=== PATIENT | male | born 1970 | race Caucasian/White ===

== ENCOUNTER 2021-03-03 23:20 | Emergency (ER) | payer BC, SELFPAY ==
[2021-03-03 23:33] VITALS: BP 122/70; PULSE 81; RESP 18; TEMP 36.9; O2SAT 99
[2021-03-04 00:04] LABS: Basophils Percent Auto 0.6 % (0.2-1.2); Eosinophils Absolute Auto 0.3 K/mm3 (0-0.3); Eosinophils Percent Auto 4.2 % (0-4.4); Hematocrit 45.5 % (42.0-52.0); Hemoglobin 15.2 g/dL (14.0-18.0); Immature Granulocyte Absolute 0.01 K/mm3 (0.00-0.031); Immature Granulocyte Percent A 0.1 % (0-0.5); Lymphocytes Absolute Auto 1.53 K/mm3 (0.9-3.2); Lymphocytes Percent Auto 21.3 % (18.3-44.2); Mean Corpuscular HGB Conc 33.4 g/dl (32-36); Mean Corpuscular Hemoglobin 31.8 pg (26-34); Mean Corpuscular Volume 95.2 fl (80-100); Mean Platelet Volume 9.9 fl (7.4-10.4); Monocytes Absolute Auto 0.5 K/mm3 (0.1-0.6); Monocytes Percent Auto 6.7 % (2.6-8.5); Neutrophils Absolute Auto 4.8 K/mm3 (1.3-6.7); Neutrophils Percent Auto 67.1 % (45.5-73.1); Platelet Count Result 160 k/mm3 (150-375); Red Blood Count 4.78 M/mm3 (4.6-6.20); Red Cell Distribution Width 12.4 % (11.5-14.5); White Blood Count 7.2 K/mm3 (4.5-10.0)
[2021-03-04] MEDS: SODIUM CHLORIDE 0.9% IV 1,000 ML 999 ML IV CONT (00:06)
--- NOTE | 2021-03-04 00:09 | ECG_ITS ---
Measurements Intervals [place] Rate: 63 P: 81 FL: 118 QRS: 81 QRSD: 109 T: 72 QT: 401 QTc: 412 Interpretive Statements SINUS RHYTHM WITH SHORT FL INTERVAL INCOMPLETE RIGHT BUNDLE BRANCH BLOCK BORDERLINE ECG Electronically Signed On 03-04-2021 6:59:28 CDT by Sung Sprague D.O.
[2021-03-04 00:11] LABS: Lactic Acid Reflex 0.6 mmol/L (0.7-2.1)
[2021-03-04 00:20] LABS: Alanine Aminotransferase 39 U/L (4-50); Albumin Level 4.5 g/dL (3.5-5.1); Alkaline Phosphatase 117 U/L (38-126); Anion Gap 8 mmol/L (8-16); Aspartate Amino Transferase 43 U/L (17-59); Bilirubin,Total 0.4 mg/dL (0.2-1.3); Blood Urea Nitrogen 18 mg/dL (9-20); Calcium 9.3 mg/dL (8.4-10.2); Carbon Dioxide 28 mmol/L (22-30); Chloride 102 mmol/L (98-107); Estimated CRCL calculation 68 ml/min; Estimated Glomerular Filt Rate > 60; Glucose 103 mg/dL (65-110); Potassium 4.4 mmol/L (3.4-5.0); Sodium 138 mmol/L (137-145)
[2021-03-04 00:21] LABS: Acetaminophen < 10 ug/mL (10-30); Salicylate 4.5 mg/dL (2-20)
[2021-03-04 00:36] LABS: Amphetamine Screen Urine Negative (Negative); Barbiturate Screen Urine Negative (Negative); Benzodiazepines Screen Urine Negative (Negative); Cannabinoid Screen Urine Positive (Negative); Cocaine Screen Urine Negative (Negative); Methadone Screen Urine Negative (Negative); Opiate Screen Urine Negative (Negative); Phencyclidine Screen Urine Negative (Negative)
[2021-03-04 00:45] LABS: Add Urine Microscopic? YES; Appearance Urine Clear (Clear); Bilirubin Urine Negative (Negative); Blood Urine Negative (Negative); Color Urine Yellow (Yellow); Glucose Urine UA Negative (Negative); Ketones Urine Trace mg/dL (Negative); Leukocyte Esterase Ur Negative LEU/UL (Negative); Mucus Urine Few /lpf; Nitrate Urine Negative (Negative); Protein Urine 1+ mg/dL (Negative); RBC Urine 0-2 /hpf (0-2); WBC Urine 0-3 /hpf
[2021-03-04 00:46] LABS: Specific Grav Ur 1.033 (1.001-1.035)
[2021-03-04 00:49] LABS: Alveolar/Arterial O2 Gradient 16.6 mmHg; Base Excess ABG -1.5 mEq/l (+/-2.0); Fractional Inspired Oxygen 21 %; HCO3 ABG 22.6 mEq/l (22.0-26.0); Oxygen Content ABG 18.6 %vol (16.0-22.0); Oxyhemoglobin 95.5 % THb (90.0-100.0); PCO2 ABG 36.4 mmHg (35.0-45.0); PO2 ABG 89.5 mmHg (80.0-100.0); PO2 FiO2 Ratio Arterial Blood 4.26 %; Total Hemoglobin 13.8 g/dL (12.0-18.0); pH ABG 7.411 (7.350-7.450)
[2021-03-04 00:50] LABS: Device ROOM AIR; Modified Allen's Test Pass; Site Drawn RIGHT RADIAL
[2021-03-04 00:58] LABS: Troponin I < 0.012 ng/mL (0.000-0.034)
--- NOTE | 2021-03-04 01:36 | ED.GENADULT ---
HPI - General Adult General Chief complaint: Recheck/Abnormal Lab/Rx Stated complaint: aspirin Time Seen by Provider: 03/03/21 23:49 History of Present Illness HPI narrative: Patient is a 51-year-old male who is referred to the ER for evaluation of possible chronic salicylate overdose. He had been taking around 40 tabs of baby aspirin throughout the day for last 3 days. He been having some back pain related to his work. No intent to harm himself or others. He reports he called poison control because he had had some brief dizziness and ringing in his left ear. No nausea/vomiting. Has no chest pain/chest pressure/shortness of breath. Has never attempted overdose previously. Related Data Allergies Allergy/AdvReac Type Severity Reaction Status Date / Time no known drugs Allergy Mild Uncoded 03/18/09 11:30 Review of Systems Review of Systems: All systems reviewed & are unremarkable except as noted in HPI and below Constitutional: Constitutional: Denies chills, Denies fever(s) and Denies weakness ENT: Reports dizziness, Denies nasal congestion and Denies sore throat Cardiovascular: Cardiovascular: Denies chest pain, Denies rapid heart rate and Denies radiating jaw, neck or arm pain Respiratory: Respiratory: Denies cough and Denies dyspnea Gastrointestinal: Gastrointestinal: Denies abdominal pain, Denies nausea and Denies vomiting Neurologic: Denies headache(s), Denies focal weakness and Denies numbness Psychiatric: Psychiatric: Denies anxiety, Denies depression, Denies homicidal ideation and Denies suicidal ideation PMFSH Past Medical History Medical History (Updated 03/04/21 @ 05:42 by Nicolas Quintero MD) Depression Surgical History Surgical History (Updated 03/04/21 @ 05:42 by Nicolas Quintero MD) No pertinent past surgical history Social History Social History (Updated 03/04/21 @ 05:42 by Nicolas Quintero MD) Smoking status: Never smoker Exam Narrative: GENERAL: Well-appearing, well-nourished, and in no acute distress. HEAD: Normocephalic, atraumatic. EYES: PERRL and EOMI. ENT: Mucous membranes moist. Cerumen impaction. Right TM normal. CHEST: Clear to auscultation. No respiratory distress. HEART: Regular rate and rhythm. Normal peripheral pulses. Back: No reproducible tenderness of the midline or paraspinal back T/L-spine. ABDOMEN: Soft, nontender, nondistended. EXTREMITIES: Normal range of motion. No edema. SKIN: Warm, dry, no rash. NEURO: No focal deficits. Alert and oriented x3. PSYCH: Normal mood and affect. Course Course Emergency Course: Patient resting comfortably. Cerumen removed. Discharge. Vital Signs Vital signs: Vital Signs Temperature 98.5 F 03/03/21 23:33 Pulse Rate 81 03/03/21 23:33 Respiratory Rate 18 03/03/21 23:33 Blood Pressure 122/70 03/03/21 23:33 Pulse Oximetry 99 03/03/21 23:33 Temperature 98.5 F 03/03/21 23:33 Pulse Rate 81 03/03/21 23:33 Respiratory Rate 18 03/03/21 23:33 Blood Pressure 122/70 03/03/21 23:33 Pulse Oximetry 99 03/03/21 23:33 Procedures Ear Wax Removal Left Ear: Ear Wax Removal Date: 03/04/21 Ear Wax Removal Time: 01:20 Results: Re-examined: some cerumen remains TM Examination: TM(s) erythematous Ear Canal Exam: bleeding Noted (posterior ear canal) Patient Tolerated Procedure: well Technique: ear canal irrigated and ear canal curetted Medical Decision Making Vital Signs Vital Signs: Vital Signs Temperature 98.5 F 03/03/21 23:33 Pulse Rate 81 03/03/21 23:33 Respiratory Rate 18 03/03/21 23:33 Blood Pressure 122/70 03/03/21 23:33 Pulse Oximetry 99 03/03/21 23:33 Temperature 98.5 F 03/03/21 23:33 Pulse Rate 81 03/03/21 23:33 Respiratory Rate 18 03/03/21 23:33 Blood Pressure 122/70 03/03/21 23:33 Pulse Oximetry 99 03/03/21 23:33 Lab Data Result diagrams: 03/03/21 23:56 03/03/21 23:56
== END 2021-03-04 01:55 | disposition home or self-care (01) ==
PROVIDERS: Emergency Provider Emergency Medicine
DX: H61.22 Impacted cerumen, left ear (principal); M54.9 Dorsalgia, unspecified; Z79.82 Long term (current) use of aspirin; Z51.81 Encounter for therapeutic drug level monitoring
CPT/HCPCS: 36415; 36600; 69210; 80053; 80307; 81001; 82805; 83605; 83735; 84484; 85025; 93005; 96360; 99284; J7030

== ENCOUNTER 2021-04-21 15:02 | Emergency (ER) | payer BC, SELFPAY ==
--- NOTE | ~2021-04-21 | XR_ITS ---
EXAMINATION: XR chest 2V DATE: 04/21/2021 15:39 INDICATION: 10 days of chest pain TECHNIQUE: PA and lateral views of the chest were obtained. COMPARISON: None FINDINGS: Incidentally noted azygos lobe and fissure. Lungs are clear with no focal airspace opacities, pulmona ry edema, pleural effusion or pneumothorax. The cardiomediastinal silhouette is normal. Mild thoracic spondylosis. IMPRESSION: 1. No acute cardiopulmonary disease. Reviewed, dictated and finalized at location A.
--- NOTE | 2021-04-21 15:04 | ECG_ITS ---
Measurements Intervals [place] Rate: 63 P: 79 TN: 127 QRS: 74 QRSD: 102 T: 64 QT: 381 QTc: 392 Interpretive Statements SINUS RHYTHM INCOMPLETE RIGHT BUNDLE BRANCH BLOCK BORDERLINE ECG Electronically Signed On 04-22-2021 8:01:20 CDT by Sung Sprague D.O.
[2021-04-21 15:10] VITALS: BP 115/53; PULSE 63; RESP 16; TEMP 36.2; O2SAT 98
[2021-04-21 15:16] VITALS: BP 108/74; PULSE 64; RESP 21; O2SAT 98
[2021-04-21 15:33] LABS: Basophils Percent Auto 0.4 % (0.2-1.2); Eosinophils Absolute Auto 0.2 K/mm3 (0-0.3); Eosinophils Percent Auto 2.4 % (0-4.4); Hemoglobin 15.1 g/dL (14.0-18.0); Immature Granulocyte Absolute 0.02 K/mm3 (0.00-0.031); Immature Granulocyte Percent A 0.3 % (0-0.5); Lymphocytes Absolute Auto 1.75 K/mm3 (0.9-3.2); Lymphocytes Percent Auto 23.3 % (18.3-44.2); Mean Corpuscular HGB Conc 34.3 g/dl (32-36); Mean Corpuscular Hemoglobin 32.4 pg (26-34); Mean Corpuscular Volume 94.4 fl (80-100); Mean Platelet Volume 9.7 fl (7.4-10.4); Monocytes Absolute Auto 0.5 K/mm3 (0.1-0.6); Monocytes Percent Auto 6.3 % (2.6-8.5); Neutrophils Absolute Auto 5.1 K/mm3 (1.3-6.7); Neutrophils Percent Auto 67.3 % (45.5-73.1); Platelet Count Result 153 k/mm3 (150-375); Red Blood Count 4.66 M/mm3 (4.6-6.20); Red Cell Distribution Width 12.4 % (11.5-14.5); White Blood Count 7.5 K/mm3 (4.5-10.0)
[2021-04-21 15:43] LABS: INR 0.9; Prothrombin Time 12.4 Seconds (11.1-14.7)
[2021-04-21 15:45] LABS: Anion Gap 9 mmol/L (8-16); Blood Urea Nitrogen 13 mg/dL (9-20); Calcium 9.2 mg/dL (8.4-10.2); Carbon Dioxide 26 mmol/L (22-30); Chloride 107 mmol/L (98-107); Estimated CRCL calculation 74 ml/min; Estimated Glomerular Filt Rate > 60; Glucose 130 mg/dL (65-110); Potassium 3.9 mmol/L (3.4-5.0); Sodium 142 mmol/L (137-145)
[2021-04-21 15:57] LABS: Troponin I 0.016 ng/mL (0.000-0.034)
[2021-04-21] MEDS: ASPIRIN 81 MG CHEWABLE TABLET 324 MG PO (16:03)
[2021-04-21 16:49] VITALS: BP 115/66; PULSE 60; RESP 14; O2SAT 99
[2021-04-21 17:01] VITALS: BP 111/73; PULSE 57; RESP 18; O2SAT 99
--- NOTE | 2021-04-21 17:18 | ED.CHESTPAIN ---
HPI - Chest Pain General Chief Complaint: Chest Pain Stated Complaint: CP, sent from [employer] Time Seen by Provider: 04/21/21 15:17 Source: patient Mode of arrival: ambulatory Limitations: no limitations History of Present Illness complaint: chest discomfort Onset (ago): day(s) (10) Timing of current episode: episodic Prior episodes: Yes Onset: during exertion Severity: mild Quality: tightness Relieving factors: rest Context: other (worse with activity, work) Associated symptoms: other (none) Treatment prior to arrival: none Risk Factors Coronary artery disease risk factors: none Thoracic aortic dissection risk factors: none Related Data Allergies Allergy/AdvReac Type Severity Reaction Status Date / Time no known drugs Allergy Mild Uncoded 03/18/09 11:30 Review of Systems Review of Systems: CONSTITUTIONAL: no fever, no weight loss, no confusion EYES: no vision changes, no eye pain ENT: no rhinorrhea, no sore throat, no difficulty swallowing CARDIOVASCULAR: positive for chest pain, no leg edema, no palpitations RESPIRATORY: no cough, no shortness of breath, no hemoptysis GASTROINTESTINAL: no abdominal pain, no nausea, no vomiting, no diarrhea GENITOURINARY: no flank pain, no dysuria, no hematuria SKIN: no rash, no jaundice MUSCULOSKELETAL: no back pain, no trauma. NEUROLOGIC: No headache, no dizziness, no focal weakness PSYCHIATRIC: No hallucinations, no suicidal ideation PMFSH Past Medical History Medical History Depression Surgical History Surgical History No pertinent past surgical history Social History Social History Smoking status: Never smoker Exam Narrative: General: alert, afebrile, answering all questions appropriately Head: normocephalic, atraumatic Eyes: EOMI bilaterally, anicteric, no injection ENT: moist mucous membranes, oropharynx patent, no rhinorrhea Neck: supple, trachea midline, no JVD Chest: equal chest rise bilaterally, no chest wall trauma noted Lungs: clear to auscultation bilaterally, respirations unlabored CV: regular rate, no YUE B, calf size equal bilaterally EXT: no deformity noted, moving all extremities equally Skin: warm, dry, no pallor Neuro: alert, oriented x 3; CN 2-12 grossly intact, no dysarthria Psych: affect appropriate, though content normal Course Course Emergency Course: All labs are normal, troponin is negative after 10 days of intermittent chest pain, EKG was normal sinus rhythm with no ST changes. Patient is PERC -98% on room air EKG is unchanged from March 04, 2021, patient is chest pain-free, ambulatory with a heart score of 1. Considered safe for discharge. Patient has follow-up appoint with primary care this week and was also given physician on-call Vital Signs Vital signs: Vital Signs Temperature 36.2 C L 04/21/21 15:10 Pulse Rate 63 04/21/21 15:10 Respiratory Rate 16 04/21/21 15:10 Blood Pressure 115/53 L 04/21/21 15:10 Pulse Oximetry 98 04/21/21 15:10 Temperature 36.2 C L 04/21/21 15:10 Pulse Rate 64 04/21/21 15:16 Respiratory Rate 21 H 04/21/21 15:16 Blood Pressure 108/74 04/21/21 15:16 Pulse Oximetry 98 04/21/21 15:16 MDM - Chest Pain MDM Narrative Medical decision making narrative: 48-year-old male no significant past medical history does not smoke no cocaine use no family history of CAD complaining of intermittent chest pain lasting seconds at a time where not really describes his pain but more as a discomfort in the left anterior chest. Pain worse while he is at work or with exertion. Improves with rest. Lasts a few seconds at a time. No fever, no cough, no tearing chest pain radiating to the back, no shortness of breath. No increasing amounts of symptoms. No palpitations Differential Diagnosis Differential diagnosis: Likely unstabl
[2021-04-21 18:01] VITALS: BP 114/74; PULSE 57; RESP 11; O2SAT 99
[2021-04-21 18:42] LABS: Troponin I < 0.012 ng/mL (0.000-0.034)
== END 2021-04-21 18:25 | disposition home or self-care (01) ==
PROVIDERS: Emergency Medicine; Emergency Provider Emergency Medicine; PCP Family Medicine
DX: R07.9 Chest pain, unspecified (principal); I45.10 Unspecified right bundle-branch block
CPT/HCPCS: 36415; 71046; 80048; 84484; 85025; 85610; 85730; 93005; 99284; A9270

== ENCOUNTER 2021-05-23 13:21 | Outpatient (CLI) | payer BC, SELFPAY ==
--- NOTE | ~2021-05-23 | XR_ITS ---
EXAMINATION: XR lumbar spine 2-3V EXAM DATE: 05/23/2021 13:58 INDICATION: M54.9 - Dorsalgia, unspecified . TECHNIQUE: Lumber spine frontal, lateral, lateral L5-S1 projections for interpretation. There is no prior study for comparison. FINDINGS: Mild disc disease L3-4 and L4-5. Mild to moderate lower lumbar facet arthropathy. The vert ebral bodies are aligned in the AP dimension. Sacrum, sacroiliac joints, sacral arcuate lines are int act. Paraspinal soft tissue is unremarkable. IMPRESSION: Mild to moderate lower lumbar facet arthropathy and mild lumbar disc disease. Reviewed, dictated and finalized at location A. S ACTIVITY MANAGER IMPRESSION: Mild to moderate lower lumbar facet arthropathy and mild lumbar di sc disease.
--- NOTE | ~2021-05-23 | XR_ITS ---
EXAMINATION: XR thoracic spine 2V EXAM DATE: 05/23/2021 13:59 INDICATION: M54.9 - Dorsalgia, unspecified . TECHNIQUE: Frontal and lateral projections of the thoracic spine as well as lateral swimmers projecti on of the upper thoracic spine for interpretation. There is no prior study for comparison. FINDINGS: The vertebral bodies are aligned in the AP dimension. Vertebral body and disc heights are well-maintained. There are no bony erosions identified. Paraspinal soft tissue is unremarkable. Azygo s fissure, congenital variant. IMPRESSION: Unremarkable thoracic x-ray exam. Reviewed, dictated and finalized at location A. RER HELPER
[2021-05-23 14:00] LABS: Alanine Aminotransferase 35 U/L (4-50); Albumin Level 4.4 g/dL (3.5-5.1); Alkaline Phosphatase 117 U/L (38-126); Anion Gap 8 mmol/L (8-16); Aspartate Amino Transferase 37 U/L (17-59); Bilirubin,Total 0.5 mg/dL (0.2-1.3); Blood Urea Nitrogen 19 mg/dL (9-20); Calcium 9.2 mg/dL (8.4-10.2); Carbon Dioxide 29 mmol/L (22-30); Chloride 103 mmol/L (98-107); Cholesterol 131 mg/dL (0-200); Estimated Glomerular Filt Rate 58; Glucose 116 mg/dL (65-110); HDL Direct 48 mg/dL; Potassium 4.3 mmol/L (3.4-5.0); Sodium 140 mmol/L (137-145); Triglycerides 93 mg/dL (<150)
[2021-05-23 14:02] LABS: Hemoglobin A1C 5.2 % (<5.7)
[2021-05-23 14:12] LABS: LDL Cholesterol Direct 71 mg/dL
[2021-05-23 14:33] LABS: Prostate Specific Antigen 0.8 ng/mL (< OR = 4.0)
[2021-05-23 15:22] LABS: Vitamin D 25 Hydroxy 22.1 ng/mL
== END 2021-05-23 13:22 | disposition home or self-care (01) ==
PROVIDERS: PCP Internal Medicine; Visit Provider Nurse Practitioner
DX: M51.36 Other intervertebral disc degeneration, lumbar region (principal); Z13.6 Encounter for screening for cardiovascular disorders; Z13.1 Encounter for screening for diabetes mellitus; Z13.220 Encounter for screening for lipoid disorders; Z12.5 Encounter for screening for malignant neoplasm of prostate; Z13.29 Encounter for screening for other suspected endocrine disorder
CPT/HCPCS: 36415; 72070; 72100; 80053; 80061; 82306; 83036; 84153; 84443; G0103

== ENCOUNTER 2021-07-23 09:00 | Outpatient (RCR) | payer BC, SELFPAY ==
--- NOTE | 2021-06-13 15:56 | PTOPEVAL ---
Thank you for referring Steven Amezquita to [facility].? The patient is scheduled to be seen for therapy? 1x/week for 6 weeks. Please review, sign, date and return this plan of care BETH. I agree with and certify that the following plan of care is medically necessary. Referring Physician Date Attending Provider: Zabrina Gagnon, HUMPHREY-C Diagnosis back pain Onset 12/31 Cause no known injury Subjective Information He c/o back pain consistently Query Text:As Reported By Patient/ since December 2020. He was Family performing heavy repeated lifting due at work. 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 His working surface was raised to improve his back pain. He has increased pain with work with leaning position and leaning and lifting position. He wants to look for different work, but will not be changing jobs any time soon. He does breathing exercises and yoga. He traded [employer] for golf this year. He would walk some of the courses. He did not like using the carrier. Diagnostic Tests X-Rays For This Problem Yes: Mild to moderate lower lumbar facet arthropathy and mild lumbar disc diseas Pain Assessment Bilateral Lower Back Reported Pain Level 5 Pain Description Aching,Sharp Pain Frequency Chronic Lowest Pain Intensity 0 Greatest Pain Intensity 9 Pain Aggravating Factors Bending,Lifting,Prolonged Position Pain Score Pain Score 5: Self Report Interventions Used Interventions Used By Clinicians Education,Exercise Pain Relief Interventions Used By Exercise Patient Cervical and Lumbar ROM Lumbar ROM Lumbar Flexion Active Floor:Hands to: Lumbar ROM WNL Lumbar Comments normal trunk motion without pain Cervical and Lumbar Muscle Testing Lumbar Strength Upper Abdominal Strength 4 Good Lower Abdominal Strength 3+Fair+ Upper Back Extension 4 Good Lower Back Extension 4 Good Lower Extremity Muscle Strength Testing General Lower Extremity Strength Gross Lower Extremity Strength grossly 5/5 except neil hip
--- NOTE | 2021-07-16 07:10 | PCPTNOTE ---
Patient was cancelled today by therapist due to arrived with + COVID symptoms with temp. Recommended he contact his MD or get tested. His re-eval was re-scheduled.
--- NOTE | 2021-07-23 09:53 | PTOPEVAL ---
Physical Therapy discharge summary Thank you for referring Steven Amezquita to [facility].? Steven has received 5 therapy visits to address his back limitations. He demonstrate normal trunk motion, normal leg strength and core strength. He demonstrates indep and compliance with his HEP. He has achieved his therapy goals at this time. Will DC skilled skilled therapy services at this time. Please review, sign, date and return this discharge summary BETH. I agree with and certify that the following plan of care is medically necessary. Referring Physician Date Attending Provider: BRYSON Link Problem Diagnosis back pain Onset 12/31 Cause no known injury Subjective Information He c/o back pain consistently Query Text:As Reported By Patient/ since December 2020. Family He was COVID neg, but limited his activities for 1 week. He returned to work after being sick, but noticed increased pain and soreness with RTW. But he felt better today with his exercises. He c/o He is more aware of his body mechanics at work. Pain Assessment Timing of Pain Assessment Timing of Pain Assessment Re-assessment Pain Scale Pain Scale Used Numeric (1 - 10) Self Report Pain Assessment Bilateral Lower Back Reported Pain Level 0 Pain Description Aching Lowest Pain Intensity 0 Greatest Pain Intensity 2 Pain Score Pain Score 0: Self Report Cervical and Lumbar ROM Lumbar ROM Reason Not Measured WNL/Left,WNL/Right Lower Extremity Muscle Strength Testing General Lower Extremity Strength Gross Lower Extremity Strength left hip abduction 4/5, right hip abduction: 4+/5 General Exercise Exercise Description reviewed YOGA moves for single Query Text:Record Sets, Reps, leg movement and hip adductor Resistance, and Position stretch - discussed use of yoga block to assist with movements - discussed full body fitness program, use of person labor trainer to provide progression of resistance training for full body. - reviewed importance of core strengthening with upper/lower back and glut strengthening program. - discussed importance of proper body mechanics with normal daily task
== END 2021-07-23 13:28 | disposition home or self-care (01) ==
LOC: ANHPT 09:00
PROVIDERS: PCP Internal Medicine; Visit Provider Nurse Practitioner
DX: M54.9 Dorsalgia, unspecified (principal)
CPT/HCPCS: 97110; 97161

== ENCOUNTER → 2021-07-29 08:32 | Outpatient (CLI) | payer BC, SELFPAY ==
[2021-07-29 14:28] LABS: Influenza A QL RT-PCR Negative (Negative); Influenza B QL RT-PCR Negative (Negative); SARS-CoV-2 RNA PCR Negative
== END ==
PROVIDERS: PCP Internal Medicine; Visit Provider Internal Medicine
DX: R68.89 Other general symptoms and signs (principal); Z20.822 Contact with and (suspected) exposure to COVID-19
CPT/HCPCS: 87502; C9803; U0003; U0005

== ENCOUNTER 2021-09-16 00:03 | Day surgery (SDC) | payer BC, SELFPAY ==
[2021-06-28 10:05] VITALS: BMI 45.0
[2021-09-11 11:59] VITALS: BMI 21.3
--- NOTE | 2021-09-15 13:20 | WPDANESEPP ---
Anes - Eval Pre Procedure Procedure: Operation Date: 09/16/21 13:00 Proposed Procedures p Screening Colonoscopy - Yusuf Jacobson MD Date/Time: 09/15/21 13:20 Pre Op Diagnosis: neoplasm screening Patient Data Age: 51 Gender: M Height: 1.89 m Weight: 76 kg Allergies Allergy/AdvReac Type Severity Reaction Status Date / Time hydrocodone Allergy Other Verified 09/11/21 12:03 Home Medications Medication Instructions Recorded Confirmed Type acetaminophen 500 mg capsule 500 mg PO BID PRN cap 05/16/21 06/28/21 History mecobalamin (vitamin B12) 5,000 5,000 mcg PO DAILY 05/16/21 06/28/21 History mcg disintegrating tablet omega-3 fatty acids 1,000 mg 1,000 mg PO DAILY 05/16/21 06/28/21 History capsule Zarbee's Cough Plus Mucous 2 tsp PO BID 09/11/21 09/11/21 History ascorbic acid (vitamin C) 1,000 ea PO DAILY 09/11/21 09/11/21 History Patient hx anesthesia problems: none Family hx anesthesia problems: none Results Review: All pre-operative results and documents have been reviewed as part of the pre-operative evaluation. [facility] Past Medical History Medical History Depression Heartburn Irritable Painful joint Surgical History Surgical History No pertinent past surgical history Family History Family History Father Cancer Grandparent Hypertension Thyroid disease Social History Social History Years smoked: 11 Smoking status: Former smoker Tobacco type: cigarettes Smokeless tobacco user: chewing tobacco Second hand tobacco smoke exposure: No Alcohol intake: former Substance use: never Substance use type: does not use Gender identity (if verbalized by the patient): Male Spiritual care concerns: No Exam Day of Procedure 09/15/21 13:20
[2021-09-16 12:41] VITALS: BP 105/61; PULSE 67; RESP 18; TEMP 36.6; O2SAT 100; BMI 19.1
[2021-09-16] MEDS: LACTATED RINGERS 1,000 ML 150 ML IV CONT (12:53)
--- NOTE | 2021-09-16 13:22 | PM.HPGS ---
History of Present Illness History of Present Illness Consent: Risks, benefits, and alternatives have been discussed and questions answered. Patient agrees to proceed with procedure. Chief complaint: neoplasm screening Narrative: Steven Amezquita is a 51 year old male here for first screening colonoscopy Review of Systems Constitutional: Constitutional: Denies headache(s) and Denies weakness Eyes: Eyes: Denies blurry vision ENT: Reports Normal hearing present, Denies headache(s) and Denies neck pain Cardiovascular: Cardiovascular: Denies chest pain and Denies dyspnea Respiratory: Respiratory: Denies dyspnea Gastrointestinal: Gastrointestinal: Reports no additional gastrointestinal complaints Genitourinary: Genitourinary: Denies dysuria Musculoskeletal: Musculoskeletal: Denies neck pain Integumentary/Breasts: Skin/Breast: Denies dry skin Neurologic: Reports Normal hearing present, Denies headache(s) and Denies weakness Psychiatric: Psychiatric: Denies anxiety Endocrine: Endocrine: Denies change in body appearance Hematologic/Lymphatic: Hematologic/Lymphatic: Denies easy bleeding Allergic/Immunologic: Allergic/Immunologic: Denies urticaria PMFSH Past Medical History Medical History Depression Heartburn Irritable Painful joint Surgical History Surgical History No pertinent past surgical history Family History Family History Father Cancer Grandparent Hypertension Thyroid disease Social History Social History Years smoked: 11 Smoking status: Former smoker Tobacco type: cigarettes Smokeless tobacco user: chewing tobacco Second hand tobacco smoke exposure: No Alcohol intake: former Substance use: never Substance use type: does not use Living arrangements: with family Gender identity (if verbalized by the patient): Male Spiritual care concerns: No Meds Home Medications and Allergies Home Medications Medication Instructions Recorded Confirmed Type acetaminophen 500 mg capsule 500 mg PO BID PRN cap 05/16/21 09/16/21 History mecobalamin (vitamin B12) 5,000 5,000 mcg PO DAILY 05/16/21 09/16/21 History mcg disintegrating tablet omega-3 fatty acids 1,000 mg 1,000 mg PO DAILY 05/16/21 09/16/21 History capsule Zarbee's Cough Plus Mucous 2 tsp PO BID 09/11/21 09/16/21 History ascorbic acid (vitamin C) 1,000 ea PO DAILY 09/11/21 09/16/21 History Allergies Allergy/AdvReac Type Severity Reaction Status Date / Time hydrocodone Allergy Other Verified 09/16/21 12:40 Vital Signs Vital Signs - 24 hr 09/16/21 12:41 Temperature 97.9 F Pulse Rate 67 Respiratory Rate 18 Blood Pressure 105/61 Pulse Oximetry 100 Exam Const: General: comfortable and no acute distress HENMT: General nose exam: Normal nares present Eyes: General: appearance normal, both eyes and all related structures Neck: Neck: no JVD Resp: Auscultation: clear to auscultation bilaterally Cardio: Rate: regular rate Rhythm: regular rhythm GI: Inspection: non-distended GI Palp: Yes Soft to palpation Skin: General skin exam: normal color Neuro: General: gait normal Speech: normal speech Extrem: General: normal to inspection Psych: Mental Status: mental status grossly normal Assessment and Plan Assessment and plan (1) Screening for colon cancer: Code(s): Z12.11 - Encounter for screening for malignant neoplasm of colon Status: Acute Assessment and Plan: colonoscopy
--- NOTE | 2021-09-16 13:27 | WPDANESEFPP ---
Anes - Eval Final PreProcedure Day of Procedure 09/16/21 13:27 Patient weight: thin Heart: regular rate and rhythm Lungs: clear to auscultation and normal air movement Airway: Mallampati scale class II Neurological: alert and oriented Last oral intake: >/= 8 hours ASA classification: II Emergent: no Anesthetic plan: proceed Anesthesia type and monitoring: general GIVS and standard monitoring Results Review: All pre-operative results and documents have been reviewed as part of the pre-operative evaluation. Informed Consent: The patient's anesthetic plan and its attendant risks and benefits were discussed with the patient/family/POA. Questions were solicited and answers provided to the satisfaction of the patient/family/POA.
[2021-09-16 13:48] VITALS: BP 98/61; PULSE 68; RESP 14; O2SAT 100
[2021-09-16 13:58] VITALS: BP 105/65; PULSE 61; RESP 20; O2SAT 100
[2021-09-16 14:08] VITALS: BP 108/74; PULSE 54; RESP 20; O2SAT 100
== END 2021-09-16 14:22 | disposition home or self-care (01) ==
PROVIDERS: PCP Internal Medicine; Visit Provider Internal Medicine Gastroenterology
PROC: 0DJD8ZZ Inspection of Lower Intestinal Tract, Via Natural or Artificial Opening Endoscopic (ICD-10-PCS; CPT 45378; principal; 2021-09-16 13:00)
DX: Z12.11 Encounter for screening for malignant neoplasm of colon (principal); K63.5 Polyp of colon; K64.8 Other hemorrhoids; F17.220 Nicotine dependence, chewing tobacco, uncomplicated
CPT/HCPCS: 45385; 88305; J2704; J7120

== ENCOUNTER 2022-01-02 20:47 | Emergency (ER) | payer BC, SELFPAY ==
[2022-01-02 20:50] VITALS: BP 109/87; PULSE 93; RESP 18; TEMP 36.3; O2SAT 97
--- NOTE | 2022-01-02 21:02 | ED.DENTAL ---
HPI - Dental/Oral General Chief complaint: Dental/Oral Stated complaint: tooth pain Time Seen by Provider: 01/02/22 20:58 History of Present Illness HPI Narrative: Patient is a 51-year-old male who presents ER with dental pain. Began 24 hours ago and has developed swelling to his right lower jaw. No difficulty breathing or swallowing. No fevers or chills or sweats. Has a dentist in [place] who has not yet contacted. Related Data Home Medications Medication Instructions Recorded Confirmed acetaminophen 500 mg capsule 500 mg PO BID PRN Pain 05/16/21 09/16/21 mecobalamin (vitamin B12) 5,000 5,000 mcg PO DAILY 05/16/21 09/16/21 mcg disintegrating tablet omega-3 fatty acids 1,000 mg 1,000 mg PO DAILY 05/16/21 09/16/21 capsule Zarbee's Cough Plus Mucous 2 tsp PO BID 09/11/21 09/16/21 ascorbic acid (vitamin C) 1,000 ea PO DAILY 09/11/21 09/16/21 Allergies Allergy/AdvReac Type Severity Reaction Status Date / Time hydrocodone Allergy Other Verified 01/02/22 20:55 Review of Systems Constitutional: Constitutional: Denies chills and Denies fever(s) ENT: Denies dysphagia, Denies nasal congestion and Denies sore throat Comments: Dental pain PMFSH Past Medical History Medical History Depression Heartburn Irritable Painful joint Surgical History Surgical History No pertinent past surgical history Family History Family History Father Cancer Grandparent Hypertension Thyroid disease Social History Social History Years smoked: 11 Smoking status: Former smoker Tobacco type: cigarettes Smokeless tobacco user: chewing tobacco Second hand tobacco smoke exposure: No Alcohol intake: former Substance use: never Substance use type: does not use Gender identity (if verbalized by the patient): Male Spiritual care concerns: No Exam Narrative: GENERAL: Well-appearing, well-nourished, and in no acute distress. HEAD: Normocephalic, atraumatic. ENT: Mucous membranes moist. Dental abscess at 230. Swelling of the right lower mandible. Normal-appearing posterior oropharynx. EXTREMITIES: Normal range of motion. No edema. NEURO: Alert and oriented x3. PSYCH: Normal mood and affect. Course Course Emergency Course: Tolerated drainage. Discharge home with pain medication and antibiotics. Vital Signs Vital signs: Vital Signs Temperature 97.3 F L 01/02/22 20:50 Pulse Rate 93 01/02/22 20:50 Respiratory Rate 18 01/02/22 20:50 Blood Pressure 109/87 01/02/22 20:50 Pulse Oximetry 97 01/02/22 20:50 Temperature 97.3 F L 01/02/22 20:50 Pulse Rate 93 01/02/22 20:50 Respiratory Rate 18 01/02/22 20:50 Blood Pressure 109/87 01/02/22 20:50 Pulse Oximetry 97 01/02/22 20:50 Procedures Abscess I/D oral: Date of Incision: 01/02/22 Time of Incision: 21:00 Side (if applicable): right Local Anesthetic: none Technique: needle aspiration I&D Results: Pus Discharge Plan Discharge Clinical Impression: Abscess, dental Patient Disposition: Home, Self-Care Condition: Stable Instructions: Dental Abscess (ED), Acute Dental Trauma (ED) Additional Instructions: Return to the ER if you cannot breathe, you cannot swallow, you have worsening swelling, you have additional concerns. Continue to massage her area of infection to drain pus. Perform warm salt water rinses to soften the area. Follow up with your dentist. Prescriptions: New amoxicillin-pot clavulanate 875-125 mg tablet 1 tablet PO Q12H Qty: 14 0RF No Action acetaminophen 500 mg capsule 500 mg PO BID PRN (Reason: Pain) omega-3 fatty acids 1,000 mg capsule 1,000 mg PO DAILY mecobalamin (vitamin B12)
[2022-01-02] MEDS: AMOXICILLIN/CLAVULANATE K 875-125 MG TAB 1 TABLET PO (21:21)
== END 2022-01-02 21:40 | disposition home or self-care (01) ==
PROVIDERS: Emergency Provider Emergency Medicine; PCP Internal Medicine
DX: K04.7 Periapical abscess without sinus (principal); Z87.891 Personal history of nicotine dependence
CPT/HCPCS: 41800; 99283; A9270